=== PATIENT | female | born 1950 | race Caucasian/White ===

== ENCOUNTER 2019-01-13 08:18 | Emergency (ER) | payer SELFPAY ==
[~2019-01-13] VITALS: Ht 162.6 cm; Wt 77.7 kg
[2019-01-13 08:26] VITALS: BP 130/78
--- NOTE | 2019-01-13 08:37 | NUR ---
PT. BIB FAMILY DUE TO C/O UPPER BACK PAIN 10/10 SHARP THROBBING PAIN SINCE YESTERDAY. STARTED AFTER MOPPING THE FLOOR. DENIES ANY FALL OR INJURY. NO BRUISING OR DEFORMITY NOTED. DENIES ANY N/V/D. PT. AMBULATED TO ROOM WITH STEADY GAIT. ER MD MADE AWARE. RR EVEN AND UNLABORED. SAFETY PRECAUTIONS IN PLACE. FAMILY MEMBER AT BEDSIDE. WILL CONTINUE TO MONITOR.
--- NOTE | 2019-01-13 09:09 | NUR ---
ER MD AT BEDSIDE AT THIS TIME
[2019-01-13] MEDS ORDERED: DEXAMETHASONE 10 MG/ML VIAL IM ONE (09:15)
[2019-01-13] MEDS ORDERED: KETOROLAC 60 MG/2 ML VIAL IM ONE (09:15)
--- NOTE | 2019-01-13 10:15 | NUR ---
PT. RESTING COMFORTABLY IN BED, RR EVEN AND UNLABORED. VSS. WILL CONTINUE TO MONITOR. DAUGHTER AT BEDSIDE.
[2019-01-13] MEDS ORDERED: ONDANSETRON 4 MG ODT PO ONE (10:35)
[2019-01-13] MEDS ORDERED: MORPHINE SULFATE 4 MG/ML SYR IM ONE (10:35)
[2019-01-13 11:56] VITALS: BP 110/56
--- NOTE | 2019-01-13 11:56 | NUR ---
Patient discharged with v/s stable. Written and verbal after care instructions given and explained. Patient alert, oriented and verbalized understanding of instructions. Ambulatory with steady gait. All questions addressed prior to discharge. ID band removed. Patient advised to follow up with PMD. Rx of TRAMADOL 50 MG given. Patient educated on indication of medication including possible reaction and side effects. Opportunity to ask questions provided and answered.
== END 2019-01-13 11:56 | disposition home or self-care (01) ==
LOC: MED 08:18
DX: S29.012A Strain of muscle and tendon of back wall of thorax, initial encounter (principal); M06.9 Rheumatoid arthritis, unspecified; E11.9 Type 2 diabetes mellitus without complications; I10 Essential (primary) hypertension; E03.9 Hypothyroidism, unspecified; Z88.5 Allergy status to narcotic agent; W94.29XA Exposure to other rapid changes in air pressure during ascent, initial encounter; Y93.89 Activity, other specified; Y92.89 Other specified places as the place of occurrence of the external cause; Y99.8 Other external cause status
CPT/HCPCS: 96372; 99283; J1100; J1885; J2270; Q0162

== ENCOUNTER 2019-10-05 08:19 | Emergency (ER) | payer SELFPAY ==
[~2019-10-05] VITALS: Ht 162.6 cm; Wt 74.4 kg
[2019-10-05 08:30] VITALS: BP 143/89
--- NOTE | 2019-10-05 08:37 | NUR ---
Pt ambulated to bed 2.
--- NOTE | 2019-10-05 08:37 | NUR ---
Jean Claude pelaez in ED - 10/05/19 at 0837 by [facility] Pt ambulated to bed 3.
--- NOTE | 2019-10-05 08:37 | NUR ---
Jean Claude pelaez in ED - 10/05/19 at 0837 by [facility] Pt ambulated to bed 2.
--- NOTE | 2019-10-05 08:46 | NUR ---
Patient being evaluated by DR. BARRON at bedside.
--- NOTE | 2019-10-05 08:46 | NUR ---
Dr. Mendoza is evaluating the patient at bedside.
--- NOTE | 2019-10-05 08:55 | NUR ---
PT PRESENTS TO THE ED WITH C/O L GROIN PAIN THAT RADIATES TO BACK AND L LEG. PT STATES THAT PAIN FEEL LIKES A "TUGGING SENSATION" AND RATES PAIN 10/10 AT THIS TIME. PT REPORTS TAKING IBUPROPHEN 800 AT 0730 TODAY. PT DENEIS CP, SON, N/V/D AT THIS TIME. PT STATES THAT SHE HAD A FEVER ;AST NIGHT BUT IS AFEBRILE AT THIS TIME. PT POSITIONED FOR COMFORT. BED RAIL UP X 1 FOR PT SAFETY. ER MD MADE AWARE OF PT STATUS. ALLERGY: COEDINE HX: DM2, HYPOTHYROID, HTN RX: LEVOTHYROXINE, JANUVIA, LISINOPRIL, TRAMADOL
[2019-10-05] MEDS ORDERED: MORPHINE SULFATE 4 MG/ML SYR IM ONE (09:05)
[2019-10-05] MEDS ORDERED: ONDANSETRON 4 MG ODT PO ONE (09:05)
[2019-10-05 09:38] LABS: APPEARANCE,URINE CLEAR (CLEAR); BILIRUBIN,URINE NEGATIVE (NEGATIVE); BLOOD, URINE NEGATIVE (NEGATIVE); COLOR,URINE YELLOW (YELLOW); LEUKOCYTE ESTERASE ,URINE 1+ (NEGATIVE); NITRITE, URINE NEGATIVE (NEGATIVE); UGLUCOSE NEGATIVE (NEGATIVE)
[2019-10-05 10:18] LABS: RBC,URINE 0-5 /HPF (0-5)
[2019-10-05] MEDS ORDERED: KETOROLAC 30 MG/ML VIAL IM ONE (10:30)
--- NOTE | 2019-10-05 11:35 | NUR ---
Patient discharged with v/s stable. Written and verbal after care instructions given and explained. Patient alert, oriented and verbalized understanding of instructions. Ambulatory with steady gait. All questions addressed prior to discharge. ID band removed. Patient advised to follow up with PMD. Rx of BACTRIM, NORCO, ZOFRAN, MIRALAX given. Patient educated on indication of medication including possible reaction and side effects. Opportunity to ask questions provided and answered.
[2019-10-05 11:36] VITALS: BP 143/89
== END 2019-10-05 11:35 | disposition home or self-care (01) ==
LOC: MED 08:19
DX: N39.0 Urinary tract infection, site not specified (principal); M54.42 Lumbago with sciatica, left side; E11.9 Type 2 diabetes mellitus without complications; I10 Essential (primary) hypertension; E03.9 Hypothyroidism, unspecified; Z88.5 Allergy status to narcotic agent
CPT/HCPCS: 72100; 73502; 81001; 87086; 96372; 99284; J1885; J2270; Q0162